=== PATIENT | male | born 1980 | race Caucasian/White ===

== ENCOUNTER 2018-07-09 19:30 | Emergency (ER) | payer SELFPAY ==
[~2018-07-09] VITALS: Ht 177.8 cm; Wt 119.3 kg
[2018-07-09 19:59] VITALS: Ht 177.8 cm; Wt 119.3 kg
[2018-07-09 20:57] LABS: BASOPHIL % 0.3 % (0-2); PLATELET COUNT 245 x10^3mcL (130-400)
[2018-07-09 21:05] LABS: CALCIUM 8.1 mg/dL (8.5-10.1); CARBON DIOXIDE 25.7 mmol/L (21-32); CHLORIDE SERUM 107 mmol/L (98-107); CREATININE SERUM 0.8 mg/dL (0.7-1.3); GFR1 > 60 mL/min; GLUCOSE SERUM 129 mg/dL (74-106); POTASSIUM SERUM 3.7 mmol/L (3.5-5.1); SODIUM SERUM 141 mmol/L (136-145)
[2018-07-09 21:10] LABS: ALBUMIN 3.4 g/dL (3.4-5.0); ALKALINE PHOSPHATASE 86 U/L (46-116); ALT/SGPT 46 U/L (16-63); AST/SGOT 22 U/L (15-37); BILIRUBIN TOTAL 0.18 mg/dL (0.20-1.00); TOTAL PROTEIN, SERUM 6.9 g/dL (6.4-8.2)
[2018-07-09 22:23] VITALS: BP 140/71
== END 2018-07-09 22:00 | disposition home or self-care (01) ==
LOC: ED 19:30
PROVIDERS: Emergency Medicine
DX: K62.5 Hemorrhage of anus and rectum (principal); J45.909 Unspecified asthma, uncomplicated
CPT/HCPCS: 36415

== ENCOUNTER 2018-08-01 00:37 | Inpatient (IN) | payer MEDICAID ==
[~2018-08-01] VITALS: Ht 177.8 cm; Wt 124.3 kg
--- NOTE | 2018-08-01 03:10 | NUR ---
PT. IN ED WITH C/O RIGHT FLANK PAIN RADIATING TO RIGHT LOWER ABD PAIN, CHILLS AND DYSURIA SINCE YESTERDAY. PT. AAOX4, TALKING AND RESPONDING APPROPRIATELY, BREATHING E/U. NOT IN ANY APPARENT DISTRESS AT THIS TIME. FAMILY AT BEDSIDE. WILL CONTINUE TO MONITOR.
--- NOTE | 2018-08-01 03:30 | NUR ---
PT. MEDICATED PER E-MAR. NO ADVERSE REACTIONS NOTED. WILL CONTINUE TO MONITOR.
[2018-08-01 04:09] LABS: microscopic required? YES; urine erythrocyte 1+ (NEGATIVE)
[2018-08-01 04:11] LABS: BASOPHIL % 0.1 % (0-2); PLATELET COUNT 243 x10^3mcL (130-400)
[2018-08-01 04:18] LABS: RED CELL DISTRIBUTION WIDTH 21.5 % (11.5-14.5)
[2018-08-01 04:29] LABS: rbc morphology (normal/abnorm) ABNORMAL (NORMAL)
--- NOTE | 2018-08-01 04:30 | NUR ---
PT. HGB 6.9. DR. JESSICA MADE AWARE. PT. DENIES FEELING LIGHT HEADED, SOB, OR DIZZY. REPORTS HE WAS SEEN IN ED [facility] 2WKS AGO FOR DARK STOOLS AND EPIGASTRIC PAIN. DENIES DARK STOOL OR EPIGASTRIC PAIN AT THIS TIME. PT. AAOX4, TALKING AND RESPONDING APPROPRIATLEY, BREATHING E/U. NAD. 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 WILL CONTINUE TO MONITOR.
[2018-08-01 05:04] LABS: CALCIUM 7.8 mg/dL (8.5-10.1); CARBON DIOXIDE 24.1 mmol/L (21-32); CHLORIDE SERUM 104 mmol/L (98-107); CREATININE SERUM 0.7 mg/dL (0.7-1.3); GFR1 > 60 mL/min; GLUCOSE SERUM 119 mg/dL (74-106); POTASSIUM SERUM 3.7 mmol/L (3.5-5.1); SODIUM SERUM 137 mmol/L (136-145)
[2018-08-01 05:08] LABS: ALKALINE PHOSPHATASE 81 U/L (46-116); ALT/SGPT 48 U/L (16-63); AST/SGOT 13 U/L (15-37); BILIRUBIN TOTAL 0.16 mg/dL (0.20-1.00); LIPASE 63 IU/L (73-393); TOTAL PROTEIN, SERUM 6.9 g/dL (6.4-8.2)
[2018-08-01 05:18] LABS: ALBUMIN 3.1 g/dL (3.4-5.0)
--- NOTE | 2018-08-01 06:15 | NUR ---
EMPTIED 500ML OF CLEAR YELLOW URINE.
--- NOTE | 2018-08-01 06:35 | NUR ---
RECIEVED PT FROM ER VIA YUE IN NO ACUTE DISTRESS. AT BEDSIDE. PLACED ON TELE 25. ORIENTED TO ROOM. BED IN LOWEST POSITION, 2 SIDE RAILS UP, CALL LIGHT IN REACH. WILL ENDORSE TO ONCOMING RN
[2018-08-01 06:40] VITALS: BP 107/52
--- NOTE | 2018-08-01 06:46 | NUR ---
REPORT GIVEN TO JAN RN FOR FURTHER CARE OF PATIENT. ALL QUESTIONS AND CONCERS ANSWERED.
--- NOTE | 2018-08-01 06:50 | NUR ---
PT. TRANSFERED TO [facility] FLOOR FOR FURTHER EVALUATION. RN JAN AT BEDSIDE TO RECIEVE PATIENT. STABLE AT TIME OF TRANSFER.
[2018-08-01 07:15] LABS: MAGNESIUM 1.9 mg/dL (1.8-2.4); PHOSPHOROUS 3.9 mg/dL (2.5-4.9)
[2018-08-01 07:22] LABS: CHOLESTEROL/HDL RATIO 3.6
--- NOTE | 2018-08-01 07:30 | NUR ---
RECIEVED PT. AWAKE,ALERT AND ORIENTED,DENIES ANY PAIN AT THIS TIME,STATED THE MEDICINE WAS GIVEN FROM ER RELIEVED THE PAIN IN HIS RT. FLANK.SKIN APPEARS PALE DENIES DIZZINESS.AMBULATORY HAD BM THIS AM, NO BLEEDING NOTED,DX ANEMIA H/H 6.9.ORIENTED TO ROOM AND SURROUNDINGS.ROUTINE ADMISSION CARE RENDERED. IV FLUIDS INFUSING WELL IN LEFT AC.CALL LIGHT W/ IN REACH. WILL CONT. PLAN OF CARE. MADE AWARE OF PT. ADMISSION.
[2018-08-01 07:45] LABS: T3 TOTAL 1.16 ng/mL
[2018-08-01 08:29] LABS: FREE T4 0.92 ng/dL (0.76-1.46); FREE THYROXINE INDEX 2.2 ug/dL (1.4-4.5); T4(THYROXINE) 6.6 ug/dL (4.7-13.3)
[2018-08-01 08:31] VITALS: BP 107/52
[2018-08-01 08:55] VITALS: BP 118/61
--- NOTE | 2018-08-01 09:30 | NUR ---
DR. Melanie ROYAL GI CONSULTS CAME IN SEE THE PT. W/ ORDERS FOR EGD AND COLONOSCOPY TOMMOROW AND EXPLAINED THE PROCEDURE OF EGD AND COLONOSCOPY TO PT. AND PT. VERBALIZED UNDERSTANDING OF THE PROCEDUR GIVEN.
--- NOTE | 2018-08-01 10:00 | NUR ---
PT. SIGNED CONSENT FOR BLOOD TRANSFUSIONS.
--- NOTE | 2018-08-01 10:45 | NUR ---
ONE UNIT BLOOD TRANSFUSSION STARTED ORDERED H/H 6.9 ,V/S TAKEN AND RECORDED T- 99 HR-76 RR-20 B/P 96/48 02 SAT 96% RA,DENIES ANY PAIN AT THIS TIME.EXPLAINED PT REGARDING THE ADVERSE REACTIONS OF BLOOD TRANSFUSION SUCH CHILLS,FEVER.CHEST PAIN,BACK ACHE ,SOB ECT .IF THERE IS ANY OF THIS S/S OCCUR CALL NURSE AT ONCE.PT. VERBALIZED UNDERSTANDING OF INSTRUCTIONS GIVEN WILL CONT. TO MONITOR PT.CALL LIGHT W/ IN REACH.
--- NOTE | 2018-08-01 11:00 | NUR ---
RE- CHECKED V/S AFTER 15 MINUTES T- 99.4-HR-68 RR-16 B/P114/54 W/ 02 SAT 96% NO ADVERSE REACTION NOTED.DENIES ANY PAIN.AT THIS TIME.CALL LIGHT W/ IN REACH.
[2018-08-01 12:40] VITALS: BP 114/54
--- NOTE | 2018-08-01 14:45 | NUR ---
BLOOD TRANSFUSION DONE NO ADVERSE REACTION NOTED. CALL LIGHT W/ IN REACH,V/S TAKEN AND RECORDED.T- 97.9 HR-75RR-20 B/P 112/62 02 SAT 97%.DENIES ANY PAIN AT THIS TIME.
--- NOTE | 2018-08-01 15:00 | NUR ---
PT. SIGNED CONSENT FOR EGD AND COLONOSCOPY ALL PREP . MEDS. GIVEN AND TRACEY. WELL.DENIES ANY PAIN .
[2018-08-01 15:40] LABS: AMPHETAMINE QUAL UR NONE DETECTED (See below)
[2018-08-01 16:43] VITALS: BP 112/62
--- NOTE | 2018-08-01 16:44 | NUR ---
PT. AMBULATED IN [address] TRACEY. WELL. DENIES ANY PAIN. NO ACUTE DISTRESS NOTED.
--- NOTE | 2018-08-01 18:40 | NUR ---
HAD BM X 4 AFTER BOWEL PREP,CONT. TO MONITOR.
[2018-08-01 19:49] VITALS: BP 125/69
--- NOTE | 2018-08-01 19:52 | NUR ---
RECEIVED PT IN AAOX4 NO ACUTE DISTRESS NOTED , LUNG SOUNDS CTA , ABD SOFT BS ACTIVE ON PREP FOR EGD AND COLONOSCOPY IN AM , TELE NUMBER 25 SHOWS NSR, PIV INTACT INFUSING WELL ,CALL LIGHT WITHIN PT'S REACH.
--- NOTE | 2018-08-02 00:16 | NUR ---
2ND SURE-PREP STARTED PT TOLERATED WELL . WILL CON'T TO MONITOR PT CLOSLELY.
--- NOTE | 2018-08-02 01:46 | NUR ---
PT C/O SOB SOME WHEEZES NOTED SAT 96% ON RA NO RESP DISTRESS NOTED , DR WEINSTEIN AWARE , WILL CON'T TO MONITOR PT CLOSELY , POST SUPRA-PREP MULTIPLE CLEAR LAM NOTED .
[2018-08-02 02:07] VITALS: BP 119/62
--- NOTE | 2018-08-02 02:51 | NUR ---
I HAVE REVIEWED THE DATA COLLECTION BY SOLE RUFFER (NAME):VERENA DAVIS ENTERED ON (DATE/TIME): I CONCUR WITH THE DATA AND ANY EXCEPTIONS OR COMMENTS ARE LISTED BELOW:
--- NOTE | 2018-08-02 03:01 | NUR ---
POST BREATHING TREATMENT PT DENY SOB . SAT 99% ON RA .
[2018-08-02 04:45] VITALS: BP 125/67
--- NOTE | 2018-08-02 05:52 | NUR ---
NO CHANGES OF CONDITION NOTED , ALL DUE MEDS GIVEN NO REACTION NOTED, KEPT PT NPO FOE EGD AND COLONOSCOPY THIS AM , PIV INTACT INFUSING WELL .
[2018-08-02 06:59] LABS: CALCIUM 8.5 mg/dL (8.5-10.1); CARBON DIOXIDE 23.5 mmol/L (21-32); CHLORIDE SERUM 106 mmol/L (98-107); CREATININE SERUM 0.7 mg/dL (0.7-1.3); GFR1 > 60 mL/min; GLUCOSE SERUM 97 mg/dL (74-106); SODIUM SERUM 141 mmol/L (136-145)
[2018-08-02 07:13] LABS: BASOPHIL % 0.5 % (0-2); PLATELET COUNT 260 x10^3mcL (130-400); RED CELL DISTRIBUTION WIDTH 21.4 % (11.5-14.5)
--- NOTE | 2018-08-02 07:20 | NUR ---
SEEN SITTING IN CHAIR, NO SOB OR RESP DISTRESS NOTED ON ROOM AIR. DENIES PAIN AT THIS TIME. KEPT NPO FOR EGD&COLONOSCOPE TODAY. S/L TO RFA INTACT AND PATENT. MADE AWARE PLAN OF CARE. CALL LIGHT PLACED WITHIN EASY REACH. SIDERAILS UP X2.
--- NOTE | 2018-08-02 07:30 | NUR ---
REPORT GIVEN TO GI LAB NURSE VIA PHONE.
--- NOTE | 2018-08-02 08:00 | NUR ---
OFF FLOOR TO GI LAB FOR EGD&COLONOSCOPE.
[2018-08-02 08:59] VITALS: BP 116/71
--- NOTE | 2018-08-02 09:37 | NUR ---
RECEIVED BACK FROM EGD/COLONOSCOPE. SEEN AWAKE, ALERT, ORIENTED X4. DENIES PAIN. V/S STABLE, O2SAT 97% ON ROOM AIR. AMBULATED TO BATHROOM, VOIDS X1. CARDIAC DIET FOR LUNCH INFORMED. PATIENT MADE AWARE. SCHEDULED AM MEDS GIVEN. S/L TO RFA FLUSHED PATENT.
[2018-08-02] MEDS ORDERED: PROTONIX20 MG PO (11:03)
[2018-08-02] MEDS ORDERED: NATURAL IRON65 MG PO (11:03)
[2018-08-02] MEDS ORDERED: COLACE100 MG PO (11:03)
[2018-08-02] MEDS ORDERED: KROGER NIC21 MG/24 H TOP (11:03)
[2018-08-02] MEDS ORDERED: BACTRIM DS1 TAB PO (11:09)
--- NOTE | 2018-08-02 11:33 | NUR ---
PATIENT MADE AWARE OF DISCHARGE HOME TODAY.
[2018-08-02 11:54] VITALS: BP 116/71
--- NOTE | 2018-08-02 12:29 | NUR ---
DISCHARGE INSTRUCTION/PRESCRIPTION GIVEN TO PATIENT WHO IS AWAKE, ALERT, ORIENTED X4. S/L TO RFA REMOVED WITH CATHETER INTACT, NO ERYTHEMA OR SWELLING TO SITE, DRSG APPLIED. TELEMETRY REMOVED, CLEANED AND RETURNED TO MT. DENIES PAIN. SPOUSE AT BEDSIDE.
[2018-08-02 12:33] VITALS: BP 119/69
--- NOTE | 2018-08-02 13:00 | NUR ---
DENIES PAIN, TOLERATED THOM CARDIAC DIET WELL. BROUGHT VIA WHEELCHAIR BY FINGERPRINT CLERK TO LOBBY ACCOMPANIED BY HIS SPOUSE. ALL BELONGINGS CHECKED AND KEPT WITH PATIENT. DISCHARGED HOME BY PRIVATE AUTO. CONDITION STABLE UPON DISCHARGE.
[2018-08-04 09:15] VITALS: Ht 177.8 cm; Wt 124.3 kg
== END 2018-08-02 13:00 | disposition home or self-care (01) | DRG 463 ==
LOC: ED 00:37 → DU 05:28
PROVIDERS: Emergency Medicine; Internal Medicine Gastroenterology; ADMIT Internal Medicine
PROC: 0DB78ZX Excision of Stomach, Pylorus, Via Natural or Artificial Opening Endoscopic, Diagnostic (ICD-10-PCS; principal; 2018-08-02 08:00)
PROC: 0DBG8ZZ Excision of Left Large Intestine, Via Natural or Artificial Opening Endoscopic (ICD-10-PCS; 2018-08-02 08:00)
DX: N10 Acute pyelonephritis (principal); K22.10 Ulcer of esophagus without bleeding; K29.70 Gastritis, unspecified, without bleeding; D64.9 Anemia, unspecified; E66.9 Obesity, unspecified; J45.909 Unspecified asthma, uncomplicated; F17.210 Nicotine dependence, cigarettes, uncomplicated; K25.7 Chronic gastric ulcer without hemorrhage or perforation; K29.80 Duodenitis without bleeding; K63.5 Polyp of colon
CPT/HCPCS: 43235; 45378; 84439; C9113; J1200; J1610; J1885; J1956; J2250; J2310; J2916; J3010; J3490; J7030; J7040; J7620; P9016; Q0163

== ENCOUNTER 2020-06-15 08:01 | Emergency (ER) | payer OTHER ==
[~2020-06-15] VITALS: Ht 172.7 cm; Wt 139.7 kg
[~2020-06-15 08:01] MED LIST: BACTRIM DS1 TAB PO; COLACE100 MG PO; KROGER NIC21 MG/24 H TOP; NATURAL IRON65 MG PO; PROTONIX20 MG PO
[2020-06-15 08:17] VITALS: Ht 172.7 cm; Wt 139.7 kg
[2020-06-15] MEDS ORDERED: CEPHALEXIN500 M1 PO (10:46)
[2020-06-15] MEDS ORDERED: NOR10T PO (10:46)
[2020-06-15 11:27] VITALS: BP 124/79
== END 2020-06-15 11:27 | disposition home or self-care (01) ==
LOC: ED 08:01
DX: S62.617A Displaced fracture of proximal phalanx of left little finger, initial encounter for closed fracture (principal); S61.217A Laceration without foreign body of left little finger without damage to nail, initial encounter; J45.909 Unspecified asthma, uncomplicated; W20.8XXA Other cause of strike by thrown, projected or falling object, initial encounter; Y93.89 Activity, other specified; Y92.89 Other specified places as the place of occurrence of the external cause; Y99.8 Other external cause status